=== PATIENT | male | born 1980 | race Caucasian/White ===

== ENCOUNTER 2021-01-26 17:53 | Emergency (ER) | payer MEDICAID ==
[~2021-01-26] VITALS: Ht 172.7 cm; Wt 104.3 kg
[2021-01-26 18:01] VITALS: BP 128/71
--- NOTE | 2021-01-26 18:02 | NUR ---
PT TAKEN TO BED 10.
--- NOTE | 2021-01-26 18:02 | NUR ---
Philip jones in [facility] - 01/26/21 at 1807 by [facility] PT W/C ASSISTED TO BED 2.
[2021-01-26] MEDS ORDERED: KETOROLAC 30 MG/ML VIAL IVP ONE (18:10)
[2021-01-26] MEDS ORDERED: NACL 0.9% 1,000 ML IV ONE (18:10)
--- NOTE | 2021-01-26 18:17 | NUR ---
40 Y/O MALE C/O SUBJECTIVE FEVER, DRY PRODUCTIVE COUGH +GREEN PHLEGM, MYALGIA, SORE THROAT, +N/-V, SOB X3DAYS. PT STATES HE HAS NOT RECEIVED COVID VACCINE, CHEST PAIN 5/10 WHEN COUGHING. LUNGS ARE DIM AT BASES, LABORED BREATHING SPO2 94% ON RA. ABDOMEN SOFT, ROUND, NON-TENDER, BOWEL SOUNDS ACTIVE X4. DENIES PMH NKA
--- NOTE | 2021-01-26 18:18 | NUR ---
Pt SP02 92% RA placed pt on 2L NC, spo2 94%.
--- NOTE | 2021-01-26 18:25 | NUR ---
CHEST XRAY PERFORMED BEDSIDE
--- NOTE | 2021-01-26 18:46 | NUR ---
CAMILLE MORSE, INFLUENZA A & B, CAMILLE STILES SWABBED AT PATIENT BEDSIDE AND WALKED OVER TO LAB
--- NOTE | 2021-01-26 19:13 | NUR ---
REPORT GIVEN ALEXI SHEIKH. TRANSFER OF CARE GIVEN
[2021-01-26 19:22] VITALS: BP 125/79
[2021-01-26] MEDS ORDERED: PRED20TA5 PO (19:23)
[2021-01-26] MEDS ORDERED: IBUP-2213 PO (19:23)
--- NOTE | 2021-01-26 19:23 | NUR ---
SBAR report received from Rohini TRUONG. pt currently a/o x 4, gcs 15. notified of status as positive covid + with Dr. Dozier.
--- NOTE | 2021-01-26 19:38 | NUR ---
d/c with [facility]. d/c education given. opportunity to ask questions given and answered. rx of motrin and prednisone given.
== END 2021-01-26 19:39 | disposition home or self-care (01) ==
LOC: MED 17:53
DX: U07.1 COVID-19 (principal)
CPT/HCPCS: 71045; 87426; 87804; 96361; 96374; 99284; J1885; J7030; U0003